=== PATIENT | male | born 1975 | race Caucasian/White ===

== ENCOUNTER 2018-02-21 07:29 | Inpatient (IN) | payer BC ==
[2018-02-21] MEDS: CEFAZOLIN 2 GM/50 ML (PMX) 50 ML IVPB (07:00)
[~2018-02-21 07:29] MED LIST: LACTATED RINGER'S 1,000 ML IV*; SEVOFLURANE 15 MIN
[2018-02-21] MEDS ORDERED: SUCCINYLCHOLINE CHLORIDE 100 MG/5 ML SYG IV (10:11)
[2018-02-21] MEDS ORDERED: ROCURONIUM 50 MG INJ ×4 (10:11→15:10)
[2018-02-21] MEDS ORDERED: PROPOFOL 20 ML (10:11)
[2018-02-21] MEDS ORDERED: LIDOCAINE 2% (SDV) 5 ML INJ (10:11)
[2018-02-21] MEDS ORDERED: MIDAZOLAM 1 MG/ML 2 ML INJ ×3 (10:12→15:57)
[2018-02-21] MEDS ORDERED: FAMOTIDINE 20 MG INJ (10:39)
[2018-02-21] MEDS ORDERED: ONDANSETRON 4 MG INJ (10:39)
[2018-02-21] MEDS ORDERED: DEXAMETHASONE 4 MG/ML 1 ML INJ (10:39)
[2018-02-21] MEDS: POLYMYXIN/BACITRACIN 1L IRRIG (11:02)
[2018-02-21] MEDS: GELATIN SIZE 100 SPONGE (11:02)
[2018-02-21] MEDS: THROMBIN 5000 UNIT VIAL (11:02)
[2018-02-21] MEDS: BUPIVACAINE 0.25% (MPF) 30 ML INJ (11:02)
[2018-02-21] MEDS ORDERED: hydrALAzine 20 MG INJ (11:14)
[2018-02-21] MEDS ORDERED: HYDROmorphONE 2 MG/ML SYG (11:23)
[2018-02-21] MEDS ORDERED: LABETALOL HCL 20MG INJ (11:25)
[2018-02-21] MEDS ORDERED: DIPHENHYDRAMINE 50 MG INJ IV ×2 (14:00→16:30)
[2018-02-21] MEDS ORDERED: FENTAnyl 50 MCG/ML VIAL IV (14:00)
[2018-02-21] MEDS ORDERED: PROCHLORPERAZINE 10 MG INJ IV (14:00)
[2018-02-21] MEDS ORDERED: HYDROmorphONE 1 MG/5 ML IV SYRINGE IV (14:00)
[2018-02-21] MEDS ORDERED: GLYCOPYRROLATE 0.4 MG INJ (15:09)
[2018-02-21] MEDS ORDERED: NEOSTIGMINE 3 MG/3 ML SYRINGE (15:09)
[2018-02-21] MEDS ORDERED: HYDROmorphONE 1 MG/ML SYG (15:50)
[2018-02-21] MEDS: FENTAnyl 50 MCG/ML VIAL IV ×4 (15:58→16:51)
[2018-02-21] MEDS ORDERED: morphine (1 MG/ML) 10ML SYRINGE IV ×3 (16:00)
[2018-02-21] MEDS: HYDROmorphONE 1 MG/5 ML IV SYRINGE IV ×4 (16:02→16:39)
[2018-02-21] MEDS: ONDANSETRON 4 MG INJ IV (16:11)
[2018-02-21] MEDS: MEPERIDINE 25 MG INJ IV (16:11)
[2018-02-21] MEDS ORDERED: PROCHLORPERAZINE 10 MG TAB PO (16:30)
[2018-02-21] MEDS ORDERED: AL HYDROX/MG HYDROX/SIMETH 30 ML CUP PO (16:30)
[2018-02-21] MEDS ORDERED: HYDROmorphONE 0.5 MG/0.5 ML SYG IV (16:30)
[2018-02-21] MEDS ORDERED: NALOXONE (0.4 MG/ML) INJ IV ×2 (16:30)
[2018-02-21] MEDS ORDERED: TRIMETHOBENZAMIDE 100 MG/ML VIAL IM (16:30)
[2018-02-21] MEDS ORDERED: NACL 0.9% 3 ML SYG IV (16:30)
[2018-02-21] MEDS ORDERED: BETHANECHOL 25 MG TAB PO (16:30)
[2018-02-21] MEDS ORDERED: DIPHENHYDRAMINE 50 MG CAP PO (16:30)
[2018-02-21] MEDS ORDERED: ZOLPIDEM 5 MG TAB PO (16:30)
[2018-02-21] MEDS ORDERED: ACETAMINOPHEN 325 MG TAB PO (16:30)
[2018-02-21] MEDS ORDERED: ONDANSETRON 4 MG INJ IV ×2 (16:30)
[2018-02-21] MEDS: MIDAZOLAM 1 MG/ML 2 ML INJ IV (16:35)
[2018-02-21] MEDS: HYDROmorphONE 0.2 MG/ML PCA IV ×2 (16:48→22:01)
[2018-02-21] MEDS: ACETAMINOPHEN 1000MG/100ML IV 100 ML IVPB (17:09)
[2018-02-21] MEDS: DEXTROSE 5%-0.45% NACL 1,000 ML IV (17:42)
[2018-02-21] MEDS: CEFAZOLIN 1 GM/50 ML (PMX) 50 ML IVPB ×2 (18:27→23:40)
[2018-02-21] MEDS: DIAZEPAM 5 MG/ML SYG IM (18:44)
[2018-02-21] MEDS: RANITIDINE 150 MG TAB PO (20:42)
[2018-02-21] MEDS: GABAPENTIN 400 MG CAP PO (20:42)
[2018-02-21] MEDS: CEPASTAT LOZENGE MT (20:42)
[2018-02-21] MEDS: traZODone 50 MG TAB PO (20:42)
[2018-02-21] MEDS: LORAZEPAM 1 MG TAB PO (22:04)
[2018-02-22] MEDS: DIAZEPAM 5 MG/ML SYG IM (02:24)
[2018-02-22] MEDS: DEXTROSE 5%-0.45% NACL 1,000 ML IV ×3 (05:02→22:04)
[2018-02-22] MEDS: CEFAZOLIN 1 GM/50 ML (PMX) 50 ML IVPB ×2 (05:04→11:51)
[2018-02-22 05:15] LABS: HEMATOCRIT 44.3 % (42.0-52.0); HEMOGLOBIN 14.7 g/dl (14.0-18.0)
[2018-02-22] MEDS: HYDROmorphONE 0.2 MG/ML PCA IV (06:00)
[2018-02-22] MEDS: DIAZEPAM 5 MG TAB PO ×4 (06:23→21:23)
[2018-02-22 06:35] LABS: ANION GAP 1 (5-13); BLOOD UREA NITROGEN 11 mg/dl (7-20); CALCIUM 8.5 mg/dl (8.4-10.2); CARBON DIOXIDE 31 mmol/L (21-31); CHLORIDE 106 mmol/L (97-110); CREATININE 0.76 mg/dl (0.61-1.24); Estimated GFR > 60 mL/min (>60); GLUCOSE 132 mg/dl (70-220); POTASSIUM 3.9 mmol/L (3.5-5.1); SODIUM 138 mmol/L (135-144)
[2018-02-22] MEDS: RANITIDINE 150 MG TAB PO ×2 (08:21→21:20)
[2018-02-22] MEDS: GABAPENTIN 400 MG CAP PO ×3 (08:21→21:20)
[2018-02-22] MEDS: BUPROPION (XL) 150 MG TAB PO (08:21)
[2018-02-22] MEDS: DOCUSATE SODIUM 100 MG CAP PO ×2 (08:22→21:20)
[2018-02-22] MEDS: FERROUS SULFATE (EC) 325 MG TAB PO ×3 (08:22→21:20)
[2018-02-22] MEDS: VENLAFAXINE (XR) 75 MG CAP PO (08:22)
[2018-02-22] MEDS: ASCORBIC ACID 500 MG TAB PO ×2 (08:22→21:20)
[2018-02-22] MEDS: BETHANECHOL 25 MG TAB PO ×2 (08:22→13:15)
[2018-02-22] MEDS: LORAZEPAM 1 MG TAB PO (08:46)
[2018-02-22] MEDS ORDERED: DESVENLAFAXINE 100 MG PO (09:00)
[2018-02-22 09:34] LABS: ADD UMIC YES; UR ASCORBIC ACID NEGATIVE (NEGATIVE); UR BACTERIA FEW /HPF (NONE SEEN); UR BILIRUBIN (Dip) NEGATIVE (NEGATIVE); UR BLOOD (Dip) 2+ mg/dL (NEGATIVE); UR CLARITY CLEAR (CLEAR); UR COLOR YELLOW (YELLOW); UR GLUCOSE (Dip) 1+ mg/dL (NEGATIVE); UR KETONES (Dip) 1+ mg/dL (NEGATIVE); UR LEUKOCYTE ESTERASE (Dip) NEGATIVE Leu/ul (NEGATIVE); UR NITRITE (Dip) NEGATIVE (NEGATIVE); UR RBC 90 /HPF (0-5); UR SPECIFIC GRAVITY (Dip) 1.019 (1.003-1.030); UR TOTAL PROTEIN (Dip) 1+ mg/dl (NEGATIVE); UR UROBILINOGEN (Dip) NEGATIVE (NEGATIVE); UR WBC 6 /HPF (0-5)
[2018-02-22] MEDS: CEPASTAT LOZENGE MT (10:19)
[2018-02-22] MEDS: OXYCODONE/ACETAMINOPHEN (10/325) TAB PO ×4 (10:19→23:14)
[2018-02-22] MEDS: HYDROmorphONE 0.5 MG/0.5 ML SYG IV ×3 (10:25→21:17)
[2018-02-22] MEDS: OXYCODONE/ACETAMINOPHEN (5/325) TAB PO (13:15)
[2018-02-22] MEDS: traZODone 50 MG TAB PO (21:20)
[2018-02-23] MEDS: OXYCODONE/ACETAMINOPHEN (5/325) TAB PO ×3 (00:39→16:02)
[2018-02-23] MEDS: HYDROmorphONE 0.5 MG/0.5 ML SYG IV ×2 (01:18→07:07)
[2018-02-23] MEDS: DIAZEPAM 5 MG TAB PO ×3 (01:49→11:37)
[2018-02-23] MEDS: OXYCODONE/ACETAMINOPHEN (10/325) TAB PO ×3 (05:09→14:00)
[2018-02-23] MEDS: DEXTROSE 5%-0.45% NACL 1,000 ML IV (08:04)
[2018-02-23] MEDS: FERROUS SULFATE (EC) 325 MG TAB PO ×2 (09:14→13:35)
[2018-02-23] MEDS: BUPROPION (XL) 150 MG TAB PO (09:14)
[2018-02-23] MEDS: RANITIDINE 150 MG TAB PO (09:14)
[2018-02-23] MEDS: ASCORBIC ACID 500 MG TAB PO (09:15)
[2018-02-23] MEDS: VENLAFAXINE (XR) 75 MG CAP PO (09:15)
[2018-02-23] MEDS: DOCUSATE SODIUM 100 MG CAP PO (09:15)
[2018-02-23] MEDS: GABAPENTIN 400 MG CAP PO ×2 (09:15→13:35)
== END 2018-02-23 16:54 | disposition home or self-care (01) | DRG 473 ==
LOC: REC 07:29 → MS1 16:58
PROC: 0RG2070 Fusion of 2 or more Cervical Vertebral Joints with Autologous Tissue Substitute, Anterior Approach, Anterior Column, Open Approach (ICD-10-PCS; principal; 2018-02-21 09:30)
PROC: 0RT30ZZ Resection of Cervical Vertebral Disc, Open Approach (ICD-10-PCS; 2018-02-21 09:30)
PROC: 0QB30ZZ Excision of Left Pelvic Bone, Open Approach (ICD-10-PCS; 2018-02-21 09:30)
DX: M50.223 Other cervical disc displacement at C6-C7 level (principal)
CPT/HCPCS: 72020; 72040; 80048; 81001; 85014; 85018; 86850; 86900; 86901; 86920; 87086; 88304; 97116; 97161; 97530